=== PATIENT | female | born 1985 | race Caucasian/White ===

== ENCOUNTER 2016-12-25 21:58 | Day surgery (SDC) | payer BC ==
[~2016-12-25] VITALS: Ht 171.4 cm; Wt 115.7 kg
--- NOTE | 2016-12-25 21:53 | NUR ---
ADMIT PT IS A DIRECT ADMIT FROM [facility]. SHE IS TRANSFERRED VIA EMS. PT IS ALERT AND ORIENTED. SHE IS ABLE TO SCOOT SELF FROM CART TO BED. PT IS PRESENT. WILL CONTINUE TO MONITOR.
[2016-12-25] MEDS: MORPHINE SULFATE 10 MG SYRINGE IV PRN (22:05)
[2016-12-25 22:10] VITALS: BP 130/67; PULSE 97; RESP 16; TEMP 99.6; O2SAT 97
[2016-12-25 22:27] VITALS: Ht 171.4 cm; Wt 115.7 kg
[2016-12-25] MEDS ORDERED: METF10002 PO (22:30)
[2016-12-25] MEDS ORDERED: MORPHINE SULFATE 10 MG SYRINGE IV PRN (22:30)
[2016-12-25] MEDS: D5-1/2 NS KCL 20 MEQ 1,000 ML IV SCH (22:53)
[2016-12-25] MEDS: KETOROLAC 30mg/ml INJECTION IV PRN (22:53)
[2016-12-25] MEDS: ERTAPENEM 1 G in NORMAL SALINE 100 ML IV SCH (22:59)
[2016-12-26] VITALS (21 sets, daily range): BP systolic 91–119; BP diastolic 50–69; PULSE 61–91; RESP 11–16; TEMP 96.2–97.8; O2SAT 94–100
[2016-12-26] MEDS: MORPHINE SULFATE 10 MG SYRINGE IV PRN ×3 (00:58→13:10)
[2016-12-26] MEDS: ONDANSETRON 4mg/2ml INJECTION IV PRN ×2 (05:30→05:53)
[2016-12-26] MEDS: KETOROLAC 30mg/ml INJECTION IV PRN (05:33)
[2016-12-26 05:34] LABS: BASOPHILS % (AUTO) 0.1 % (0-2); EOSINOPHILS % (AUTO) 0.1 % (0-4); HGB - HEMOGLOBIN 11.1 GM/DL (12-16); IMMATURE GRANULOCYTE # (AUTO) 0.01 T/MM3 (0.00-0.03); IMMATURE GRANULOCYTE % (AUTO) 0.1 % (0.0-0.5); LYMPHOCYTES % (AUTO) 36.3 % (23-45); MEAN CORPUSCULAR HGB 27.5 UUG (26-34); MEAN CORPUSCULAR HGB CONC(MCHC 32.6 GM/DL (31-37); MEAN CORPUSCULAR VOLUME 84.4 UM3 (80-100); MEAN PLATELET VOLUME 10.1 UM3 (9.4-12.4); MONOCYTES # (AUTO) 0.6 T/MM3 (0-0.8); MONOCYTES % (AUTO) 6.8 % (0-9.0); NEUTROPHILS #(AUTO)-ABSOLUTE 4.7 T/MM3 (1.8-7.7); NEUTROPHILS % (AUTO) 56.6 % (33-66); RED BLOOD COUNT 4.03 M/MM3 (4.00-5.20); WBC - WHITE BLOOD COUNT 8.3 T/MM3 (4.5-11.0)
--- NOTE | 2016-12-26 06:15 | NUR ---
NAUSEA PT HAS BEEN NAUSEOUS THIS AM AND HAD 1 EMESIS. 8 MG ZOFRAN AND 12.5 MG PHENERGAN GIVEN THIS AM. NAUSEA SEEMS TO BE A LITTLE BETTER. WILL CONTINUE TO MONITOR.
[2016-12-26] MEDS: PROMETHAZINE 25 MG INJECTION IV PRN ×2 (06:20→13:09)
--- NOTE | 2016-12-26 06:30 | NUR ---
OR PT TO OR AT THIS TIME.
[2016-12-26] MEDS ORDERED: LR 1,000 ML IV PRN (06:55)
[2016-12-26] MEDS ORDERED: BUPIVACAINE 0.25% (2.5mg/ml) INJ 30ml SDV ONE (07:12)
--- NOTE | 2016-12-26 07:29 | ANESPREOP ---
Anesthesia Record Date and Time DATE: 12/26/16 TIME: 07:26 Pre-Op Diagnosis acute abd. Proposed Surgical Procedure lap. appy Allergies: Coded Allergies: NKDA (Verified Allergy, Unknown, 12/25/16) Ht/Wt/BMI Height: 5 ' 7.50 " Weight: 115.400 kg BMI: 39.3 kg/m2 Vital Signs Date Time Temp Pulse Resp B/P Pulse Ox O2 Delivery O2 Flow Rate FiO2 12/26/16 06:40 97.8 68 16 91/50 96 Room Air Medications Inpatient Medications Current Medications Medications (Trade) Dose Ordered Sig/Dimple Start Time Stop Time Status Last Admin Dose Admin Morphine Sulfate give 2-5 mg IV PRN PAIN Q1H PRN 12/25/16 22:30 12/25/16 23:29 DC Potassium Chloride/Dextrose/ Sod Cl (D5-1/2 NS KCl 20 Meq) 1,000 ml @ 100 mls/hr Q10H 12/25/16 22:25 12/25/16 22:53 100 MLS/HR Morphine Sulfate (Morphine) 2-5 MG Q1H PRN 12/25/16 22:30 12/26/16 04:03 5 MG Ketorolac Tromethamine (Toradol) 30 mg Q6H PRN 12/25/16 22:30 12/26/16 05:33 30 MG Promethazine HCl (Phenergan) 12-25 MG = 0.5-1 ML Q6H PRN 12/25/16 22:30 12/26/16 06:20 12.5 MG Ondansetron HCl 4-8 MG IV Q6H PRN Q6H PRN 12/25/16 22:30 12/26/16 05:53 4 MG Ertapenem 1 g/ Sodium Chloride 100 ml @ 200 mls/hr DAILY 12/26/16 09:00 12/25/16 22:59 200 MLS/HR Lactated Ringer's (Lactated Ringers) 1,000 ml @ 0 mls/hr Q0M PRN 12/26/16 06:55 12/26/16 06:56 0 MLS/HR Metformin HCl (Metformin HCl) 1,000 Mg Tablet, 1 TAB PO D, (Reported) Take one tablet, by mouth, daily with breakfast. Last Taken: on 12/24/161999 Currently on Beta Deng: No Medical/Surgical History Anesthesia PMH: Reports: Obesity, Denies: *Hypertension, *ID, Asthma, Blood Transfusion Reac, CHF, COPD, CVA/Stroke/TIA, Cancer, Seizures, Sleep Apnea Smoking Status: Never smoker Has pt. smoked today?: No Use Chewing Tobacco?: No Second Hand Exposure: No Substance Use Type: does not use Substance last used: unknown Alcohol Intake: none Last Drink: unknown Past Surgical History Orthopedic Surgeries: Abdominal Surgeries: Genitourinary Surgeries: Cardiac Surgeries: Endocrine Surgeries: Reproductive Surgeries: Neurological Surgeries: Ear Surgeries: Nose Surgeries: Throat Surgeries: Other Surgeries: - WISDOM TEETH REMOVED Anesthesia Adverse Reactions: FOUND nausea and vomiting Family Hx of Anesthesia Advers: none Hx of Motion Sickness: Yes Pertinent Findings Laboratory Tests 12/26/16 03:59 EKG Rhythm: Sinus Rhythm Physical Exam Respiratory: Bilat breath sounds equal, Lungs clear Cardiovascular: FOUND Regular rate, rhythm, FOUND No murmur Airway Assessment Mallampati Score: II TMD: 2 Fingerbreadths Neck Extension: Fair Overall Assessment: No Airway Concerns, May Be Diff Intubation ASA: 2 Plan Anesthesia Plan: GETA Discussion Discussed risks/options/alternatives of anesthesia and questions answered. Patient consents. Nursing pain assessment noted. Present: Family Member, Parent, Spouse Attestation Statement Prior to the delivery of any anesthetic medication, I examined the patient, developed the plan, obtained the patient's consent and discussed the risk and benefits of the procedure with the patient/guardian. IRINEO FIELDS CRNA Dec 26, 2016 07:29
[2016-12-26] MEDS ORDERED: ROCURONIUM 50mg/5ml INJECTION IV ONE ×2 (07:33)
[2016-12-26] MEDS ORDERED: PROPOFOL 200mg 20 ML IV ONE ×2 (07:33)
[2016-12-26] MEDS ORDERED: LIDOCAINE 2% (20mg/ml) 5ml PF SDV ONE ×2 (07:33)
[2016-12-26] MEDS ORDERED: MIDAZOLAM 2mg/2ml INJECTION ONE (07:35)
[2016-12-26] MEDS ORDERED: FENTANYL 250mcg/5ml INJECTION ONE (07:36)
[2016-12-26] MEDS ORDERED: GLYCOPYRROLATE 0.4mg/2ml INJECTION ONE (07:37)
[2016-12-26] MEDS ORDERED: ONDANSETRON 4mg/2ml INJECTION ONE (07:37)
--- NOTE | 2016-12-26 07:39 | HPF ---
HISTORY OF PRESENT ILLNESS This patient is 31 years old. This patient developed the onset of some abdominal pain at 1530 to 1600 hours on 12/25/2016. This pain started out at the right upper quadrant of the abdomen. The pain then moved down to the right lower quadrant of the abdomen. The patient did vomit once after the pain began. She has had no diarrhea. The patient did go to the emergency room at [facility] at [place], [place] for evaluation of the abdominal pain. The patient had a CT scan of the abdomen and pelvis performed at [facility] at [place], [place] which shows findings consistent with acute appendicitis. The gallbladder appeared unremarkable on the CT scan. The patient was then transferred from the emergency room at [place], [place] to [facility] for a treatment of this acute appendicitis.. PAST MEDICAL HISTORY Previous operations: None. Other previous hospitalizations: None. Other current medical problems: Polycystic ovary syndrome. SOCIAL HISTORY [place], [place]. She does not smoke cigarettes. She is .. CURRENT MEDICATIONS 1. Metformin 1000 mg one p.o. in the evening daily for treatment of polycystic ovary syndrome. 2. vitamins. ALLERGY HISTORY The patient states she has no known allergies to medications. She is sensitive to narcotics which cause nausea and vomiting as side effects.. PHYSICAL EXAMINATION VITAL SIGNS: Blood pressure is 130/67. Pulse is 97. Temperature is 99.6 degrees Fahrenheit. Oxygen saturation is 97% on room air. Respiratory rate is 16. Height is 5 feet, 7.5 inches. Weight is 115.4 kg. BMI is 39.3 kg/m2. HEAD, EYES, EARS, NOSE AND THROAT: No abnormalities noted. NECK: No neck masses. CHEST: Lung sounds are clear. BREASTS: Not examined. HEART: Regular rhythm. No murmurs. ABDOMEN: The patient does have right lower quadrant abdominal tenderness. The abdomen is soft. There is a positive Rovsing's sign. RECTUM: Exam deferred. SKIN: No jaundice. EXTREMITIES: No abnormalities noted. LABORATORY DATA Urinalysis is unremarkable. Liver function tests are all normal. Serum amylase is normal. Serum lipase is normal. Urine hCG is negative. White blood cell count is 12,800. Hemoglobin is 12.7. Hematocrit is 37.4. IMAGING DATA This patient did have a CT scan of the abdomen and pelvis performed at [facility] at [place], [place]. This shows findings consistent with acute appendicitis. Gallbladder appeared unremarkable on the CT scan. IMPRESSION 1. Acute appendicitis. 2. Polycystic ovary syndrome. PATIENT EDUCATION I did inform the patient and her of the nature of a laparoscopic appendectomy operation. Expected benefits were reviewed. Alternatives were reviewed. Potential risks and complications were reviewed including anesthetic risk, bleeding, infection, poor wound healing and injury to intraabdominal and retroperitoneal structures. The patient and were informed that there is a chance that any laparoscopic appendectomy operation might need be converted over to an open laparotomy with appendectomy operation. PLAN Laparoscopic appendectomy at [facility]. SHAY
[2016-12-26] MEDS ORDERED: ERTAPENEM 1 G in NORMAL SALINE 100 ML IV ONE (07:50)
[2016-12-26] MEDS ORDERED: DESFLURANE 240 ML LIQUID IH ONE (07:56)
[2016-12-26] MEDS: D5-1/2 NS KCL 20 MEQ 1,000 ML IV SCH ×2 (08:25→13:36)
[2016-12-26] MEDS ORDERED: SUGAMMADEX 200 MG/2 ML INJECTION IV ONE (08:28)
[2016-12-26] MEDS ORDERED: HYDROMORPHONE 2mg/ml INJECTION IV PRN (08:45)
--- NOTE | 2016-12-26 08:57 | GSPOSTPROC ---
Immediate Operative Note DATE: 12/26/16 TIME: 08:56 Postop Diagnosis: Acute appendicitis Surgical Procedure: Other (Laparoscopic appendectomy) Surgeon: Aron ASA: 2 RAZ GARCIA MD Dec 26, 2016 08:57
[2016-12-26] MEDS ORDERED: OXYCODONE I.R. 5 MG TABLET PO PRN (09:00)
[2016-12-26] MEDS: ERTAPENEM 1 G in NORMAL SALINE 100 ML IV SCH (09:00)
--- NOTE | 2016-12-26 09:36 | NUR ---
RETURN PT RETURNED TO ROOM 111 AT THIS TIME VIA CART. PT TRANSFERRED SELF FROM CART TO BED. HOB ELEVATED SLIGHTLY. VITAL SIGNS STABLE ON ROOM AIR. PT REPORTING PAIN A 2/10 AT THIS TIME. FAMILY PRESENT IN ROOM UPON RETURN. BED ALARM ON. SIDE RAILS UP X2. WILL CONTINUE TO MONITOR CLOSELY.
--- NOTE | 2016-12-26 09:36 | NUR ---
CM CM IN TO VISIT WITH PT. SHE IS AT PROCEDURE. HER SPOUSE AND PARENTS ARE PRESENT. THEY DENY DC NEEDS. THEY FEEL ABLE TO CARE FOR PT AT HOME. THEY ARE MADE AWARE THAT DC IS POSSIBLE LATER THIS AFTERNOON. THEY ARE GIVEN CM CONTACT INFORMATION. LACE SCORE IS 2. NO FURTHER INTERVENTION NEEDED. Addendum: 12/26/16 at 0937 by JEANINE MADRIGAL RN Amended: Links added.
[2016-12-26] MEDS: IBUPROFEN 200 MG TABLET PO PRN ×2 (10:41→17:00)
[2016-12-26] MEDS: ACETAMINOPHEN 500 MG TABLET PO PRN ×2 (11:59→18:07)
--- NOTE | 2016-12-26 13:37 | OPNOTEF ---
DATE OF OPERATION 12/26/2016 PREOPERATIVE DIAGNOSIS Acute appendicitis. POSTOPERATIVE DIAGNOSIS Acute appendicitis. OPERATION Laparoscopic appendectomy. SURGEON Dr. Sharp ANESTHESIA General. ASA CLASS 2 FINDINGS The patient did appear to have some acute appendicitis. There was no perforation of the appendix. There was no periappendiceal abscess. The terminal ileum appeared normal. The cecum appeared normal. The ascending colon appeared normal. The gallbladder appeared normal. The liver appeared normal. All loops of large and small intestine which were visualized appeared normal. It did appear that the patient might have a small right indirect inguinal hernia. DESCRIPTION OF OPERATION The patient was placed in supine position on the operating table. General anesthesia was satisfactorily induced. A Manuel catheter was inserted into the urinary bladder. The abdomen was prepped and draped in routine sterile fashion. The skin and underlying structures at the abdominal wall at a supraumbilical incision site were infiltrated with bupivacaine 0.25% without epinephrine. A supraumbilical incision was made. A Veress needle was inserted into the peritoneal cavity through the incision. Pneumoperitoneum was established with carbon dioxide. The Veress needle was removed. A 5 mm port was placed at the supraumbilical incision. The 5 mm laparoscope was inserted through the 5 mm supraumbilical port. The skin and underlying abdominal wall structures were infiltrated with bupivacaine at the lateral margin of the right rectus abdominis muscle at the right upper quadrant of the abdomen at another incision site. An incision was made at this location and a 5-mm port was placed at the right upper quadrant abdominal incision. The skin and underlying abdominal wall structures were infiltrated with bupivacaine at a suprapubic incision site. A suprapubic incision was made at the midline. A 12 mm port was placed at the suprapubic incision. The peritoneal cavity was examined with the laparoscope with findings as described above. The appendix was grasped and elevated with the endoscopic [place] forceps inserted at the suprapubic port. The mesoappendix was divided with the Ethicon brand 5 ml laparoscopic ultrasonically activated coagulating soraya. This was the Harmonic Harley ultrasonic soraya. This was introduced at the right upper quadrant port. The mesoappendix was coagulated and divided with the Ethicon brand 5 mm laparoscopic ultrasonically activated coagulating soraya. The appendix was completely freed up in this manner. Two separate 0-PDS Endoloop ligatures were applied to the base of the appendix adjacent to the cecum. The appendix was then divided just beyond these ligatures with a curved dissecting scissors. The appendix was placed in a specimen retrieval pouch. The specimen retrieval pouch containing the appendix was brought out through the suprapubic incision. The appendix was submitted as a specimen for study by the pathologist. The 12 mm port was reinserted at the suprapubic incision. The appendectomy site looked good. The appendiceal stump looked good. Irrigation was performed at the right lower quadrant of the abdomen around the cecum. Irrigation was performed at the pelvis. Irrigation was performed at the right lateral gutter. Irrigation fluid was removed. Hemostasis remained satisfactory at the appendectomy site. The right upper quadrant port was removed. The suprapubic port was removed. The laparoscope was removed. The supraumbilical port was removed. Carbon dioxide was removed from the peritoneal cavity by desufflation. The fascial layer of the suprapubic incision was closed with a series of simple interrupted stitches using 0 Vicryl suture. Skin margins were then closed at all the incisions with subcuticular stitches using 4-0 Vicryl suture. Benzoin and 1/4-inch wide Steri-Strips were applied to the incisions. Sterile dressings were applied. The patient tolerated the operation well. The patient was transferred from the operating room to the recovery room in satisfactory condition. SHAY
--- NOTE | 2016-12-26 15:41 | ANESPO ---
Post-Op Note Date 12/26/16 Time: 15:40 Status Pt Participated in Evaluation: Pt participated in person Vital Signs Date Time Temp Pulse Resp B/P Pulse Ox O2 Delivery O2 Flow Rate FiO2 12/26/16 15:22 96.2 61 16 108/55 100 Room Air 12/26/16 09:05 3.00 Respiratory Function: Airway patent Cardiovascular Function: Regular pulse Mental Status: Alert/oriented Pain Level Intensity: 3 Hydration: Taking po fluids, Nausea Complications during Recovery None apparent Follow-Up Instructions Instructions Per Surgeon CYN CABRERA [employer] TE[employer]ER Dec 26, 2016 15:41
== END 2016-12-26 21:22 | disposition home or self-care (01) ==
LOC: SRG 21:58 → SCU 21:58
PROVIDERS: ATTEND Surgery
DX: K35.80 Unspecified acute appendicitis (principal); E28.2 Polycystic ovarian syndrome; Z79.84 Long term (current) use of oral hypoglycemic drugs
CPT/HCPCS: 36415; 44970; 85025; J1335; J1885; J2250; J2405; J2550; J2704; J3010; J7050; J7120; S0020